=== PATIENT | female | born 1995 | race Caucasian/White ===

== ENCOUNTER 2020-10-22 05:01 | Inpatient (IN) | payer BC ==
[~2020-10-22 05:01] MED LIST: Citric Acid/Sodium Citrate Solution 30 ML Cup PO ONE; Lactated Ringers 1,000 ML IV SCH; Metoclopramide 10 MG/2 ML SDV IVPUSH ONE; Sodium Chloride 0.9% 10 ML Syringe FLUSH PRN
[2020-10-22] MEDS ORDERED: ceFAZolin 2 GM in Premix Bag 1 BAG IV ONE (07:00)
[2020-10-22] MEDS ORDERED: Bupivacaine 0.5% 30 ML SDV ONE (07:14)
[2020-10-22] MEDS ORDERED: Morphine PF 10 MG/10 ML SDV ONE (07:15)
[2020-10-22] MEDS ORDERED: ceFAZolin 1 GM Vial ONE ×2 (07:16→08:28)
[2020-10-22] MEDS ORDERED: Oxytocin 10 Units/1 ML SDV ONE (07:16)
[2020-10-22] MEDS ORDERED: Ondansetron 4 MG/2 ML SDV ONE (07:17)
[2020-10-22] MEDS ORDERED: Metoclopramide 10 MG/2 ML SDV ONE (07:18)
[2020-10-22] MEDS ORDERED: Citric Acid/Sodium Citrate Solution 30 ML Cup ONE (07:18)
--- NOTE | 2020-10-22 07:30 | PCM.PREANE ---
Preanesthetic Assessment - Procedure Proposed Procedure: C Section - Anesthesia/Transfusion/Family Hx Anesthesia History: Prior Anesthesia Without Reaction Family History of Anesthesia Reaction: No Transfusion History: No Prior Transfusion(s) Intubation History: Unknown - Review of Systems General: No Symptoms Pulmonary: No Symptoms Cardiovascular: No Symptoms Gastrointestinal: No Symptoms Neurological: No Symptoms Other: Reports: None - Physical Assessment NPO Status Date: 10/21/20 Vital Signs: Last Vital Signs Temp 36.8 C 10/22/20 05:59 Pulse 92 10/22/20 05:59 Resp 14 10/22/20 05:59 BP 115/78 10/22/20 05:59 Pulse Ox 98 10/22/20 05:59 Weight: 122.606 kg ASA Class: 2 Mental Status: Alert & Oriented x3 Dentition: Reports: Normal Dentition Thyro-Mental Finger Breadths: 3 Mouth Opening Finger Breadths: 4 ROM/Head Extension: Full Lungs: Clear to Auscultation, Normal Respiratory Effort Cardiovascular: Regular Rate, Regular Rhythm - Lab Values: Laboratory Last Values WBC 12.37 K/mm3 (3.98-10.04) H 10/22/20 05:55 RBC 4.41 M/mm3 (3.98-5.22) 10/22/20 05:55 Hgb 11.7 gm/dl (11.2-15.7) 10/22/20 05:55 Hct 35.9 % (34.1-44.9) 10/22/20 05:55 MCV 81.4 fl (79.4-94.8) D 10/22/20 05:55 MCH 26.5 pg (25.6-32.2) 10/22/20 05:55 MCHC 32.6 g/dl (32.2-35.5) 10/22/20 05:55 RDW Std Deviation 40.2 fL (36.4-46.3) 10/22/20 05:55 Plt Count 368 K/mm3 (182-369) D 10/22/20 05:55 MPV 8.7 fl (9.4-12.3) L 10/22/20 05:55 Neut % (Auto) 65.1 % (34.0-71.1) 10/22/20 05:55 Lymph % (Auto) 25.1 % (19.3-51.7) 10/22/20 05:55 [place] % (Auto) 7.3 % (4.7-12.5) 10/22/20 05:55 Eos % (Auto) 1.6 (0.7-5.8) 10/22/20 05:55 Baso % (Auto) 0.3 % (0.1-1.2) 10/22/20 05:55 Neut # (Auto) 8.05 K/mm3 (1.56-6.13) H 10/22/20 05:55 Lymph # (Auto) 3.11 K/mm3 (1.18-3.74) 10/22/20 05:55 [place] # (Auto) 0.90 K/mm3 (0.24-0.36) H 10/22/20 05:55 Eos # (Auto) 0.20 K/mm3 (0.04-0.36) 10/22/20 05:55 Baso # (Auto) 0.04 K/mm3 (0.01-0.08) 10/22/20 05:55 Blood Type O POSITIVE 10/22/20 05:55 Gel Antibody Screen Negative 10/22/20 05:55 - Allergies Allergies/Adverse Reactions: Allergies Allergy/AdvReac Type Severity Reaction Status Date / Time No Known Allergies Allergy Verified 06/19/19 15:46 - Blood Blood Available: No - Anesthesia Plan Pre-Op Medication Ordered: Antacids - Acknowledgements Anesthesia Type Planned: Spinal Pt an Appropriate Candidate for the Planned Anesthesia: Yes Alternatives and Risks of Anesthesia Discussed w Pt/Guardian: Yes Pt/Guardian Understands and Agrees with Anesthesia Plan: Yes PreAnesthesia Questionnaire Other Cardiovascular History: Preeclampsia with second Gastrointestinal History: Reports: GERD Other Gastrointestinal History: with PHYSICAL INTEGRATION PRACTITIONER History: Reports: - Past Surgical History HEENT Surgical History: Reports: Oral Surgery - SUBSTANCE USE Tobacco Use Status *Q: Never Tobacco User Second Hand Smoke Exposure: No Recreational Drug Use History: No - CURRENT (IN HOUSE) MEDS Current Meds: Current Medications Cefazolin Sodium/Dextrose 2 gm (/ Premix) 50 mls @ 100 mls/hr IV ONETIME ONE Stop: 10/22/20 07:29 Oxytocin/Lactated Ringer's (Pitocin In Lr 10 Units/1,000 Ml) 10 unit in 1,000 mls @ 100 mls/hr IV ASDIRECTED [facility]; Protocol Lactated Ringer's (Ringers, Lactated) 1,000 mls @ 125 mls/hr IV ASDIRECTED [facility] Last Admin: 10/22/20 05:45 Dose: 125 mls/hr Documented by: Sodium Chloride (Saline Flush) 10 ml FLUSH ASDIRECTED PRN PRN Reason: Keep Vein Open Discontinued Medications Bupivacaine HCl (Marcaine 0.5%) Confirm Administered Dose 30 ml .ROUTE .STK-MED ONE Stop: 10/22/20 07:15 Cefazolin Sodium (Ancef) Confirm Administered Dose 2 gm .ROUTE .STK-MED ONE Stop: 10/22/20 07:17 Citric Acid/Sodium Citrate (Bicitra Solution) 30 ml PO ONETIME ONE Stop: 10/22/20 00:25 Citric Acid/Sodium Citrate (Bicitra Solution) Confirm Administered Dose 30 ml .ROUTE .STK-MED ONE Stop: 10/22/20 07:19 Metoclopramide HCl (Reglan) 10 mg IVPUSH ONETIME ONE Stop: 10/22/20 00:25 Metoclopramide HCl (Reglan) Confirm Administered Dose 10 mg .ROUTE .STK-MED ONE Stop: 10/22/20 07:19 Morphine Sulfate (Duramorph Pf) Confirm Administered Dose 10 mg .ROUTE .STK-MED ONE Stop: 10/22/20 07:16 Ondansetron HCl (Zofran) Confirm Administered Dose 4 mg .ROUTE .STK-MED ONE Stop: 10/22/20 07:18 Oxytocin (Pitocin) Confirm Administered Dose 10 unit .ROUTE .STK-MED ONE Stop: 10/22/20 07:17
[2020-10-22] MEDS ORDERED: Lactated Ringers 1,000 ML ONE ×2 (07:40→08:01)
[2020-10-22] MEDS ORDERED: Oxytocin/Lactated Ringers 10 UNIT/1,000 ML BAG IV SCH (08:00)
[2020-10-22] MEDS ORDERED: ePHEDrine 50 MG/ML SDV ONE (08:06)
[2020-10-22] MEDS ORDERED: Ketorolac 30 MG/ML SDV ONE (08:43)
[2020-10-22] MEDS ORDERED: Ondansetron 4 MG/2 ML SDV IVPUSH PRN (09:03)
[2020-10-22] MEDS ORDERED: diphenhydrAMINE 50 MG/ML SDV IVPUSH PRN (09:03)
--- NOTE | 2020-10-22 09:07 | PCM.OPNOTE ---
- General Post-Op/Procedure Note Date of Surgery/Procedure: 10/22/20 Operative Procedure(s): repeat section Findings: Large (7 cm) uterine window. Viable female, weight 7#10oz, 7/9 APGARS at 815. Pre Op Diagnosis: prior , desires repeat Post-Op Diagnosis: Same Anesthesia Technique: Spinal Primary Surgeon: Madiha Greer Anesthesia Provider: Adrienne Jimenez Classifier: Kesha Ferguson Reason Classifier Was Necessary: patient safety, prior , retraction Fluid Replacement, Intraop: 2,000 Output, Urine Amount: 50 EBL in mLs: 800 Condition: Good Free Text/Narrative:: The patient was taken to the operating room where spinal anesthesia was dosed to surgical levels without difficulty. The patient was prepped and draped in the usual sterile fashion in the dorsal supine position with a leftward tilt. A Pfannenstiel skin incision was made with the scalpel and carried through to the underlying layer of fascia. The fascia was incised in the midline and extended laterally using Lyon scissors. Denis clamps were used to elevate the superior aspect of the fascial incision, which was elevated, and the underlying rectus muscles were dissected off bluntly and using Lyon scissors. Attention was then turned to the inferior aspect of the fascial incision, which in similar fashion was grasped with Denis clamps, elevated, and the underlying rectus muscles were dissected off bluntly and using the lyon. The rectus muscles were dissected in the midline. The peritoneum was entered bluntly; this incision was extended superiorly and inferiorly with good visualization of the bladder. The bladder blade was inserted. What appeared to be a uterine window or significant vesicouterine edema was visualized. Incision made about 2 cm above this in a transverse fashio n. This The lower uterine segment was incised in a transverse fashion using the scalpel and with digital traction. Clear fluid was noted. The infant was subsequently delivered by flexing the head to the incision. Body and shoulders followed without difficulty. The cord was clamped and cut. The infant was subsequently handed to the awaiting retirement manager whose presence had been requested.. The placenta was delivered spontaneously intact with a three-vessel cord noted. The uterus was exteriorized and cleared of all clots and debris. The uterine incision was repaired in 2 layers using 0 monocryl. Hemostasis was visualized of the hysterotomy. Attention turned to bladder and lower segment and defect noted covered only with thin vesicouterine peritoneum. This was taken down. Lower aspect of defect grasped with rings and this was closed in running locking fashion as a second hysterotomy. The uterus was returned to the abdomen. The uterine incision was reexamined and it was noted to be hemostatic. The pelvis was copiously irrigated. The fascia was closed with 1 PDS suture, and the skin was closed with 3-0 monocryl. Sponge, lap, and instrument counts were correct x2. The patient was stable at the completion of the procedure and was subsequently transferred to the recovery room in stable condition.
--- NOTE | 2020-10-22 09:07 | PCM.POSTAN ---
POST ANESTHESIA ASSESSMENT - MENTAL STATUS Mental Status: Alert - VITAL SIGNS Vital Signs: Last Vital Signs 0851 115/79 14 92 98.2 Temp 36.8 C 10/22/20 05:59 Pulse 92 10/22/20 05:59 Resp 14 10/22/20 05:59 BP 115/78 10/22/20 05:59 Pulse Ox 98 10/22/20 05:59 - RESPIRATORY Respiratory Status: Respiratory Rate WNL, Airway Patent, O2 Saturation Stable - CARDIOVASCULAR CV Status: Pulse Rate WNL, Blood Pressure Stable - GASTROINTESTINAL GI Status: No Symptoms - PAIN Pain Score: 0 - POST OP HYDRATION Hydration Status: Adequate & Stable
[2020-10-22] MEDS ORDERED: Dextrose 5%-Lactated Ringers 1,000 ML IV SCH (13:30)
[2020-10-22] MEDS: Ketorolac 30 MG/ML SDV IVPUSH SCH ×2 (15:21→21:01)
[2020-10-23] MEDS: Ketorolac 30 MG/ML SDV IVPUSH SCH (03:19)
[2020-10-23] MEDS ORDERED: ePHEDrine 50 MG/ML SDV IVPUSH PRN (06:33)
[2020-10-23] MEDS ORDERED: Acetaminophen/oxyCODONE 325-5 MG Tab PO PRN ×2 (06:33)
[2020-10-23] MEDS ORDERED: Dextrose 5%-Lactated Ringers 1,000 ML IV SCH (06:33)
[2020-10-23] MEDS ORDERED: Naloxone 0.4 MG/ML SDV IVPUSH PRN (06:33)
[2020-10-23] MEDS ORDERED: diphenhydrAMINE 50 MG/ML SDV IVPUSH PRN (06:33)
[2020-10-23] MEDS ORDERED: Docusate Sodium 100 MG Cap PO PRN (06:33)
--- NOTE | 2020-10-23 07:32 | PCM.PNPP ---
- General Info Date of Service: 10/23/20 Functional Status: Reports: Pain Controlled, Tolerating Diet, Ambulating - Review of Systems General: Reports: No Symptoms Pulmonary: Reports: No Symptoms Cardiovascular: Reports: No Symptoms Gastrointestinal: Reports: Abdominal Pain (minimal ) Genitourinary: Reports: No Symptoms Musculoskeletal: Reports: No Symptoms Neurological: Reports: No Symptoms - General Info Date of Service: 10/23/20 - Patient Data Vital Signs - Most Recent: Last Vital Signs Temp 36.9 C 10/23/20 03:20 Pulse 83 10/23/20 03:20 Resp 15 10/23/20 06:00 BP 123/66 10/23/20 03:20 Pulse Ox 99 10/23/20 06:00 Weight - Most Recent: 122.606 kg I&O - Last 24 Hours: Intake & Output 10/22/20 10/23/20 10/23/20 22:59 06:59 14:59 Intake Total 1000 Output Total 400 1200 Balance -400 -200 Lab Results - Last 24 Hours: Laboratory Results - last 24 hr 10/22/20 10/23/20 Range/Units 05:55 06:50 WBC 12.34 H (3.98-10.04) K/mm3 RBC 4.37 (3.98-5.22) M/mm3 Hgb 11.4 (11.2-15.7) gm/dl Hct 35.8 (34.1-44.9) % MCV 81.9 (79.4-94.8) fl MCH 26.1 (25.6-32.2) pg MCHC 31.8 L (32.2-35.5) g/dl RDW Std Deviation 41.5 (36.4-46.3) fL Plt Count 342 (182-369) K/mm3 MPV 8.3 L (9.4-12.3) fl Neut % (Auto) 76.2 H (34.0-71.1) % Lymph % (Auto) 15.1 L (19.3-51.7) % [place] % (Auto) 6.4 (4.7-12.5) % Eos % (Auto) 1.7 (0.7-5.8) Baso % (Auto) 0.3 (0.1-1.2) % Neut # (Auto) 9.40 H (1.56-6.13) K/mm3 Lymph # (Auto) 1.86 (1.18-3.74) K/mm3 [place] # (Auto) 0.79 H (0.24-0.36) K/mm3 Eos # (Auto) 0.21 (0.04-0.36) K/mm3 Baso # (Auto) 0.04 (0.01-0.08) K/mm3 RPR Non-reactive (NONREACTIVE) Med Orders - Current: Current Medications Diphenhydramine HCl (Benadryl) 25 mg IVPUSH Q6H PRN PRN Reason: Itching or Nausea Docusate Sodium (Colace) 100 mg PO Q12H PRN PRN Reason: Constipation Ephedrine Sulfate (Ephedrine Sulfate) 5 mg IVPUSH SEECOMMENT PRN PRN Reason: Other Dextrose/Lactated Ringer's (Dextrose 5%-Lactated Ringers) 1,000 mls @ 125 mls/hr IV ASDIRECTED [facility] Stop: 10/23/20 14:32 Ibuprofen (Motrin) 600 mg PO Q6H PRN PRN Reason: mild pain or fever Naloxone HCl (Narcan) 0.1 mg IVPUSH SEECOMMENT PRN PRN Reason: Respiratory Depression Oxycodone/Acetaminophen (Percocet 325-5 Mg) 2 tab PO Q4H PRN PRN Reason: Pain (severe 7-10) Oxycodone/Acetaminophen (Percocet 325-5 Mg) 1 tab PO Q4H PRN PRN Reason: Pain (moderate 4-6) Simethicone (Simethicone) 80 mg PO QIDPCANDBED [facility] Discontinued Medications Bupivacaine HCl (Marcaine 0.5%) Confirm Administered Dose 30 ml .ROUTE .STK-MED ONE Stop: 10/22/20 07:15 Last Admin: 10/22/20 08:08 Dose: 20 ml Documented by: Cefazolin Sodium (Ancef) Confirm Administered Dose 2 gm .ROUTE .STK-MED ONE Stop: 10/22/20 07:17 Cefazolin Sodium (Ancef) Confirm Administered Dose 1 gm .ROUTE .STK-MED ONE Stop: 10/22/20 08:29 Citric Acid/Sodium Citrate (Bicitra Solution) 30 ml PO ONETIME ONE Stop: 10/22/20 00:25 Last Admin: 10/22/20 07:20 Dose: 30 ml Documented by: Citric Acid/Sodium Citrate (Bicitra Solution) Confirm Administered Dose 30 ml .ROUTE .STK-MED ONE Stop: 10/22/20 07:19 Last Admin: 10/22/20 14:34 Dose: Not Given Documented by: Diphenhydramine HCl (Benadryl) 25 mg IVPUSH Q6H PRN PRN Reason: pruritis Ephedrine Sulfate (Ephedrine Sulfate) Confirm Administered Dose 50 mg .ROUTE .ST-MED ONE Stop: 10/22/20 08:07 Cefazolin Sodium/Dextrose 2 gm (/ Premix) 50 mls @ 100 mls/hr IV ONETIME ONE Stop: 10/22/20 07:29 Last Admin: 10/22/20 14:34 Dose: Not Given Documented by: Oxytocin/Lactated Ringer's (Pitocin In Lr 10 Units/1,000 Ml) 10 unit in 1,000 mls @ 100 mls/hr IV ASDIRECTED [facility]; Protocol Lactated Ringer's (Ringers, Lactated) 1,000 mls @ 125 mls/hr IV ASDIRECTED [facility] Last Admin: 10/22/20 05:45 Dose: 125 mls/hr Documented by: Lactated Ringer's (Ringers, Lactated) Confirm Administered Dose 1,000 mls @ as directed .ROUTE .ST-MED ONE Stop: 10/22/20 07:41 Last Admin: 10/22/20 14:34 Dose: Not Given Documented by: Lactated Ringer's (Ringers, Lactated) Confirm Administered Dose 1,000 mls @ as directed .ROUTE .[facility]-MED ONE Stop: 10/22/20 08:02 Dextrose/Lactated Ringer's (Dextrose 5%-Lactated Ringers) 1,000 mls @ 125 mls/hr IV ASDIRECTED [facility] Last Admin: 10/22/20 14:32 Dose: 125 mls/hr Documented by: Ketorolac Tromethamine (Toradol) Confirm Administered Dose 30 mg .ROUTE .STK-MED ONE Stop: 10/22/20 08:44 Ketorolac Tromethamine (Toradol) 30 mg IVPUSH Q6H [facility] Stop: 10/23/20 03:01 Last Admin: 10/23/20 03:19 Dose: 30 mg Documented by: Metoclopramide HCl (Reglan) 10 mg IVPUSH ONETIME ONE Stop: 10/22/20 00:25 Last Admin: 10/22/20 07:20 Dose: 10 mg Documented by: Metoclopramide HCl (Reglan) Confirm Administered Dose 10 mg .ROUTE .STK-MED ONE Stop: 10/22/20 07:19 Last Admin: 10/22/20 14:35 Dose: Not Given Documented by: Miscellaneous Medication (Phenylephrine 1 Mg/10 Ml-Ns) Confirm Administered Dose 1 mg .ROUTE .STK-MED ONE Stop: 10/22/20 08:04 Morphine Sulfate (Duramorph Pf) Confirm Administered Dose 10 mg .ROUTE .STK-MED ONE Stop: 10/22/20 07:16 Ondansetron HCl (Zofran) Confirm Administered Dose 4 mg .ROUTE .STK-MED ONE Stop: 10/22/20 07:18 Ondansetron HCl (Zofran) 4 mg IVPUSH ONETIME PRN PRN Reason: Nausea/Vomiting Oxytocin (Pitocin) Confirm Administered Dose 10 unit .ROUTE .STK-MED ONE Stop: 10/22/20 07:17 Sodium Chloride (Saline Flush) 10 ml FLUSH ASDIRECTED PRN PRN Reason: Keep Vein Open - Infant Interaction Disposition, : [place] in Room with Family Interaction: Holding Feeding: Other (see below) (pumping exclusively) Support Person: - Recovery Exam Fundal Tone: Firm Fundal Level: 2 Fingerbreadths Below Umbilicus Fundal Placement: Midline Lochia Amount: Scant Lochia Color: Rubra/Red Perineum Description: Intact, Minimal Bruising/Swelling - Exam General: Alert, Oriented, Cooperative Lungs: Clear to Auscultation, Normal Respiratory Effort Cardiovascular: Regular Rate, Regular Rhythm GI/Abdominal Exam: Soft, Tender (appropriate ) Extremities: Normal Inspection Skin: Warm, Dry, Intact Wound/Incisions: Healing Well - Problem List & Annotations (1) S/P repeat low transverse SNOMED Code(s): 461471646, [id number], [id number], [id number], [id number] Code(s): Z98.891 - HISTORY OF UTERINE SCAR FROM PREVIOUS SURGERY Status: Acute Current Visit: Yes - Problem List Review Problem List Initiated/Reviewed/Updated: Yes - Assessment Assessment:: POD#1 - Plan Plan:: * Routine cares * Pumping exclusively * Discharge home in 1-2 days
--- NOTE | 2020-10-23 07:42 | PCM48HPAN ---
Post Anesthesia Note - EVALUATION WITHIN 48HRS OF ANESTHETIC Vital Signs in Normal Range: Yes Patient Participated in Evaluation: Yes Respiratory Function Stable: Yes Airway Patent: Yes Cardiovascular Function Stable: Yes Hydration Status Stable: Yes Pain Control Satisfactory: Yes Nausea and Vomiting Control Satisfactory: Yes Mental Status Recovered: Yes Vital Signs: Last Vital Signs Temp 36.9 C 10/23/20 03:20 Pulse 83 10/23/20 03:20 Resp 15 10/23/20 06:00 BP 123/66 10/23/20 03:20 Pulse Ox 99 10/23/20 06:00
[2020-10-23] MEDS: Simethicone 80 MG Tab.Chew PO SCH ×4 (12:05→21:55)
[2020-10-23] MEDS: Ibuprofen 600 MG Tab PO PRN ×2 (12:05→20:26)
[2020-10-24] MEDS: Ibuprofen 600 MG Tab PO PRN (02:44)
--- NOTE | 2020-10-24 09:54 | PCM.SN.2 ---
- Free Text/Narrative Note: Post Operative Progress Note POD #2 Subjective: Doing well overall. Ambulating without difficulty. Lochia minimal and mostly present with pumping breastmilk. Voiding without difficulty. Passing flatus and has had a bowel movement without difficulty. Tolerating regular diet without nausea or vomiting. Pain controlled with oral medications. Pumping breastmilk with minimal difficulty. Objective: Vitals: Vital Signs - 24 hr 10/23/20 10/23/20 10/24/20 15:30 20:28 02:46 Temperature 35.7 C L 36.8 C 36.8 C Pulse, 93 98 93 Peripheral Respiratory 16 14 Rate Blood Pressure 115/72 130/62 138/83 O2 Sat by Pulse 98 99 99 Oximetry 10/24/20 08:05 Temperature 36.8 C Pulse, 98 Peripheral Respiratory 15 Rate Blood Pressure 131/80 O2 Sat by Pulse 96 Oximetry Physical Exam General: Alert and oriented, no acute distress Lungs: Clear to auscultation bilaterally Heart: Regular rate and rhythm Abdomen: Soft, minimal appropriate tenderness, non-distended, fundus midline, nontender and 1 fingerbreadth below the umbilicus Incision: Clean, dry and intact, no erythema, bleeding or drainage with Steri- Strips in place Extremities: No edema ASSESSMENT: 25-year-old female -1-0-3 s/p repeat section POD #2 for history of section, complicated by history of preeclampsia in her second and history of delivery at 35 weeks gestational age due to preeclampsia PLAN: Doing well Pumping breastmilk with minimal difficulty. Assist as needed Incision healing well. Continue to keep clean and dry. Lochia minimal. Continue to monitor for appropriate lochia. Continue routine post-operative care Discharge home today Gabino Barfield MD 9:51 AM 10/24/2020
--- NOTE | 2020-10-24 10:04 | PCM.DCSUM1 ---
Discharge Summary - Hospital Course Free Text/Narrative:: - General Post-Op/Procedure Note Date of Surgery/Procedure: 10/22/20 Operative Procedure(s): repeat section Findings: Large (7 cm) uterine window. Viable female, weight 7#10oz, 7/9 APGARS at 815. Pre Op Diagnosis: prior , desires repeat Post-Op Diagnosis: Same Anesthesia Technique: Spinal Primary Surgeon: Madiha Greer Anesthesia Provider: Adrienne Jimenez Escalator Installer: Kesha Ferguson Reason Escalator Installer Was Necessary: patient safety, prior , retraction Fluid Replacement, Intraop: 2,000 Output, Urine Amount: 50 EBL in mLs: 800 Condition: Good Free Text/Narrative:: The patient was taken to the operating room where spinal anesthesia was dosed to surgical levels without difficulty. The patient was prepped and draped in the usual sterile fashion in the dorsal supine position with a leftward tilt. A Pfannenstiel skin incision was made with the scalpel and carried through to the underlying layer of fascia. The fascia was incised in the midline and extended laterally using Lyon scissors. Denis clamps were used to elevate the superior aspect of the fascial incision, which was elevated, and the underlying rectus muscles were dissected off bluntly and using Lyon scissors. Attention was then turned to the inferior aspect of the fascial incision, which in similar fashion was grasped with Denis clamps, elevated, and the underlying rectus muscles were dissected off bluntly and using the lyon. The rectus muscles were dissected in the midline. The peritoneum was entered bluntly; this incision was extended superiorly and inferiorly with good visualization of the bladder. The bladder blade was inserted. What appeared to be a uterine window or significant vesicouterine edema was visualized. Incision made about 2 cm above this in a transverse fashion. This The lower uterine segment was incised in a transverse fashion usi ng the scalpel and with digital traction. Clear fluid was noted. The infant was subsequently delivered by flexing the head to the incision. Body and shoulders followed without difficulty. The cord was clamped and cut. The infant was subsequently handed to the awaiting assistance specialist whose presence had been requested.. The placenta was delivered spontaneously intact with a three-vessel cord noted. The uterus was exteriorized and cleared of all clots and debris. The uterine incision was repaired in 2 layers using 0 monocryl. Hemostasis was visualized of the hysterotomy. Attention turned to bladder and lower segment and defect noted covered only with thin vesicouterine peritoneum. This was taken down. Lower aspect of defect grasped with rings and this was closed in running locking fashion as a second hysterotomy. The uterus was returned to the abdomen. The uterine incision was reexamined and it was noted to be hemostatic. The pelvis was copiously irrigated. The fascia was closed with 1 PDS suture, and the skin was closed with 3-0 monocryl. Sponge, lap, and instrument counts were correct x2. The patient was stable at the completion of the procedure and was subsequently transferred to the recovery room in stable condition. Diagnosis: Stroke: No - Discharge Data Discharge Date: 10/24/20 Discharge Disposition: Home, Self-Care 01 Condition: Good - Referral to Home Health Primary Care Physician: Madiha Greer MD - Patient Summary/Data Operative Procedure(s) Performed: repeat section Complications: None Consults: None Hospital Course: Dolores Bonilla was admitted for scheduled repeat section. She was taken back to the OR and given spinal injection for anesthesia. She was prepped and draped in the normal fashion. On 10/22/2020 she had a normal repeat low transverse delivery of a live female infant at 08:15. Apgars of 7 and 9. Weight of 7 pounds 10 ounces. She was closed in a normal fashion. There was notation of a lower uterine defect after repair of the initial hysterotomy that was repaired using 2-0 Monocryl. There were no other complications. Please see the operative report for full details. Her post operative course was uneventful. Her pain was well controlled and she had minimal lochia. She was ambulating, tolerating a regular diet and voiding normally. She was passing flatus and has had a bowel movement. She was pumping breastmilk for feeding and this was going well for her. She was afebrile and her hematocrit was 35.8 on POD #1. She desired to be discharged home on the morning of POD #2. Her blood type is O+. - Patient Instructions Diet: Regular Diet as Tolerated Activity: Apply Ice, As Tolerated, No Lifting Over 20 Pounds Activity, Other: Nothing in the vagina for 6 weeks Driving: Do Not Drive (while taking narcotic medicaitons or having significant pain) Showering/Bathing: May Shower Wound/Incision Care: Keep Operative Site/Wound Site Clean and Dry Notify Provider of: Fever, Increased Pain, Swelling and Redness, Drainage, Nausea and/or Vomiting Other/Special Instructions: Please contact your physician's office if you note any bleeding or pus coming from the abdominal incision. Please contact your physician's office if you have heavy vaginal bleeding enough to soak a pad in less than an hour for several hours. Monitor for any signs of an infection in the breasts with severe pain or redness of the breast. - Discharge Plan *PRESCRIPTION DRUG MONITORING PROGRAM REVIEWED*: No *COPY OF PRESCRIPTION DRUG MONITORING REPORT IN PATIENT VERNELL: No Home Medications: Home Meds Acetaminophen/oxyCODONE [Percocet 325-5 MG] 1 - 2 tab PO Q4H PRN tablet 10/24/20 [Rx] Docusate Sodium [Colace] 100 mg PO Q12H PRN cap 10/24/20 [Rx] Ibuprofen [Motrin] 600 mg PO Q6H PRN tablet 10/24/20 [Rx] Simethicone 80 mg PO QIDPCANDBED tab.chew 10/24/20 [Rx] Patient Handouts: Care After Delivery Referrals: Madiha Greer MD [Primary Care Provider] - (Follow up in 2-3 weeks for routine postoperative visit or earlier as needed.) - Discharge Summary/Plan Comment DC Time >30 min.: No - Patient Data Vitals - Most Recent: Last Vital Signs Temp 36.8 C 10/24/20 08:05 Pulse 98 10/24/20 08:05 Resp 15 10/24/20 08:05 BP 131/80 10/24/20 08:05 Pulse Ox 96 10/24/20 08:05 Weight - Most Recent: 122.606 kg Med Orders - Current: Current Medications Diphenhydramine HCl (Benadryl) 25 mg IVPUSH Q6H PRN PRN Reason: Itching or Nausea Docusate Sodium (Colace) 100 mg PO Q12H PRN PRN Reason: Constipation Ephedrine Sulfate (Ephedrine Sulfate) 5 mg IVPUSH SEECOMMENT PRN PRN Reason: Other Ibuprofen (Motrin) 600 mg PO Q6H PRN PRN Reason: mild pain or fever Last Admin: 10/24/20 02:44 Dose: 600 mg Documented by: Naloxone HCl (Narcan) 0.1 mg IVPUSH SEECOMMENT PRN PRN Reason: Respiratory Depression Oxycodone/Acetaminophen (Percocet 325-5 Mg) 2 tab PO Q4H PRN PRN Reason: Pain (severe 7-10) Oxycodone/Acetaminophen (Percocet 325-5 Mg) 1 tab PO Q4H PRN PRN Reason: Pain (moderate 4-6) Simethicone (Simethicone) 80 mg PO QIDPCANDBED ROHAN Last Admin: 10/23/20 21:55 Dose: 80 mg Documented by: Discontinued Medications Bupivacaine HCl (Marcaine 0.5%) Confirm Administered Dose 30 ml .ROUTE .STK-MED ONE Stop: 10/22/20 07:15 Last Admin: 10/22/20 08:08 Dose: 20 ml Documented by: Cefazolin Sodium (Ancef) Confirm Administered Dose 2 gm .ROUTE .STK-MED ONE Stop: 10/22/20 07:17 Cefazolin Sodium (Ancef) Confirm Administered Dose 1 gm .ROUTE .STK-MED ONE Stop: 10/22/20 08:29 Citric Acid/Sodium Citrate (Bicitra Solution) 30 ml PO ONETIME ONE Stop: 10/22/20 00:25 Last Admin: 10/22/20 07:20 Dose: 30 ml Documented by: Citric Acid/Sodium Citrate (Bicitra Solution) Confirm Administered Dose 30 ml .ROUTE .STK-MED ONE Stop: 10/22/20 07:19 Last Admin: 10/22/20 14:34 Dose: Not Given Documented by: Diphenhydramine HCl (Benadryl) 25 mg IVPUSH Q6H PRN PRN Reason: pruritis Ephedrine Sulfate (Ephedrine Sulfate) Confirm Administered Dose 50 mg .ROUTE .STK-MED ONE Stop: 10/22/20 08:07 Cefazolin Sodium/Dextrose 2 gm (/ Premix) 50 mls @ 100 mls/hr IV ONETIME ONE Stop: 10/22/20 07:29 Last Admin: 10/22/20 14:34 Dose: Not Given Documented by: Oxytocin/Lactated Ringer's (Pitocin In Lr 10 Units/1,000 Ml) 10 unit in 1,000 mls @ 100 mls/hr IV ASDIRECTED ROHAN; Protocol Lactated Ringer's (Ringers, Lactated) 1,000 mls @ 125 mls/hr IV ASDIRECTED [facility] Last Admin: 10/22/20 05:45 Dose: 125 mls/hr Documented by: Lactated Ringer's (Ringers, Lactated) Confirm Administered Dose 1,000 mls @ as directed .ROUTE .STK-MED ONE Stop: 10/22/20 07:41 Last Admin: 10/22/20 14:34 Dose: Not Given Documented by: Lactated Ringer's (Ringers, Lactated) Confirm Administered Dose 1,000 mls @ as directed .ROUTE .STK-MED ONE Stop: 10/22/20 08:02 Dextrose/Lactated Ringer's (Dextrose 5%-Lactated Ringers) 1,000 mls @ 125 mls/hr IV ASDIRECTED [facility] Last Admin: 10/22/20 14:32 Dose: 125 mls/hr Documented by: Dextrose/Lactated Ringer's (Dextrose 5%-Lactated Ringers) 1,000 mls @ 125 mls/hr IV ASDIRECTED [facility] Stop: 10/23/20 14:32 Ketorolac Tromethamine (Toradol) Confirm Administered Dose 30 mg .ROUTE .STK-MED ONE Stop: 10/22/20 08:44 Ketorolac Tromethamine (Toradol) 30 mg IVPUSH Q6H [facility] Stop: 10/23/20 03:01 Last Admin: 10/23/20 03:19 Dose: 30 mg Documented by: Metoclopramide HCl (Reglan) 10 mg IVPUSH ONETIME ONE Stop: 10/22/20 00:25 Last Admin: 10/22/20 07:20 Dose: 10 mg Documented by: Metoclopramide HCl (Reglan) Confirm Administered Dose 10 mg .ROUTE .STK-MED ONE Stop: 10/22/20 07:19 Last Admin: 10/22/20 14:35 Dose: Not Given Documented by: Miscellaneous Medication (Phenylephrine 1 Mg/10 Ml-Ns) Confirm Administered Dose 1 mg .ROUTE .STK-MED ONE Stop: 10/22/20 08:04 Morphine Sulfate (Duramorph Pf) Confirm Administered Dose 10 mg .ROUTE .STK-MED ONE Stop: 10/22/20 07:16 Ondansetron HCl (Zofran) Confirm Administered Dose 4 mg .ROUTE .STK-MED ONE Stop: 10/22/20 07:18 Ondansetron HCl (Zofran) 4 mg IVPUSH ONETIME PRN PRN Reason: Nausea/Vomiting Oxytocin (Pitocin) Confirm Administered Dose 10 unit .ROUTE .STK-MED ONE Stop: 10/22/20 07:17 Sodium Chloride (Saline Flush) 10 ml FLUSH ASDIRECTED PRN PRN Reason: Keep Vein Open
== END 2020-10-24 10:35 | disposition home or self-care (01) | DRG 540 ==
LOC: JD.OB 05:01
PROVIDERS: ADMIT Obstetrics & Gynecology; ATTEND Obstetrics & Gynecology
PROC: 10D00Z1 Extraction of Products of Conception, Low, Open Approach (ICD-10-PCS; principal; 2020-10-22)
DX: O34.211 Maternal care for low transverse scar from previous cesarean delivery (principal); Z37.0 Single live birth; Z3A.37 37 weeks gestation of pregnancy; O99.62 Diseases of the digestive system complicating childbirth; K21.9 Gastro-esophageal reflux disease without esophagitis; Z86.16 Personal history of COVID-19
CPT/HCPCS: 01961; 36415; 59025; 85025; 86592; 86850; 86900; 86901; 94762; A9270-GY; J0690; J1885; J2270; J2370; J2405; J2590; J2765; J3490; J7120; J7121

== ENCOUNTER 2021-05-02 16:06 | Emergency (ER) | payer BC ==
--- NOTE | 2021-05-02 16:34 | EDM.PDOC ---
ED HPI GENERAL MEDICAL PROBLEM - General Chief Complaint: Lower Extremity Injury/Pain Stated Complaint: LT KNEE INJURY Time Seen by Provider: 05/02/21 16:21 Source of Information: Reports: Patient, RN Notes Reviewed History Limitations: Reports: No Limitations - History of Present Illness INITIAL COMMENTS - FREE TEXT/NARRATIVE: Patient is a 25-year-old female who presents to the ER for the evaluation of the left knee injury. She was playing softball at a tournament, and was running to the home plate, when she felt a pop in her left knee, and she fell after this, and ended up straightening her leg out, and then felt another pop. She believes that she dislocated her knee, she does this quite commonly with her right knee but has not ever had this issue with her left knee. She notes that she is not able to bear any weight on the left knee after this injury. She is not taking anything for pain management. She denies as she states she is on her menses currently. Left Knee Pain Score (Numeric/FACES): 5 - Related Data Allergies Allergy/AdvReac Type Severity Reaction Status Date / Time No Known Allergies Allergy Verified 05/02/21 16:22 Home Meds: Home Meds . [No Known Home Meds] 05/02/21 [History] Past Medical History Other Cardiovascular History: Preeclampsia with second Gastrointestinal History: Reports: GERD Other Gastrointestinal History: with [facility] & PRESIDENT History: Reports: - Past Surgical History HEENT Surgical History: Reports: Oral Surgery Social & Family History - Family History Family Medical History: No Pertinent Family History - Caffeine Use Caffeine Use: Reports: None Review of Systems - Review of Systems Review Of Systems: Comprehensive ROS is negative, except as noted in HPI. ED EXAM, GENERAL - Physical Exam Exam: See Below Exam Limited By: No Limitations General Appearance: Alert, WD/WN, No Apparent Distress Peripheral Pulses: 2+: Dorsalis Pedis (L), Dorsalis Pedis (R) Extremities: Normal Inspection, Normal Capillary Refill, Limited Range of Motion (of left knee d/t pain, states she has some shooting pain into her hip) Neurological: Alert, Oriented, Normal Cognition, No Motor/Sensory Deficits Psychiatric: Normal Affect, Normal Mood Skin Exam: Warm, Dry, Intact, Normal Color, No Rash Course - Vital Signs Last Recorded V/S: Last Vital Signs Temp 98.5 F 05/02/21 16:20 Pulse 100 05/02/21 16:20 Resp 16 05/02/21 16:20 BP 125/85 05/02/21 16:20 Pulse Ox 97 05/02/21 16:20 - Orders/Labs/Meds Orders: Active Orders 24 hr Category Date Time Status Knee Min 4V Lt [CR] Stat Exams 05/02/21 16:27 Ordered - Re-Assessments/Exams Free Text/Narrative Re-Assessment/Exam: 05/02/21 16:34 Patient presents to the ER for the evaluation of her left knee injury, we will go ahead and get x-rays of the area for evaluation, and then figure out disposition after the x-rays have been taken. 05/02/21 17:21 Patient's x-rays have been obtained, there are no obvious fracture or other bony abnormality, we will go ahead and place her in a knee immobilizer brace, and give her crutches keep her nonweightbearing and have her follow-up with orthopedics for ongoing management. Departure - Departure Time of Disposition: 17:22 Disposition: Home, Self-Care 01 Condition: Good Clinical Impression: Left knee pain Qualifiers: Chronicity: acute Qualified Code(s): M25.562 - Pain in left knee - Discharge Information *PRESCRIPTION DRUG MONITORING PROGRAM REVIEWED*: No *COPY OF PRESCRIPTION DRUG MONITORING REPORT IN PATIENT VERNELL: No Instructions: Acute Knee Pain, Adult, [id number] Referrals: Aisha Mehta NP [Primary Care Provider] - Forms: ED Department Discharge Additional Instructions: You have been evaluated in the ED for your left knee injury. Your x-ray demonstrated no acute fracture or other bony abnormality of your left knee. There is likely soft tissue injury, that might need further evaluation like an MRI. Please use ice as tolerated to the affected area. You may elevate the affected area to provide further relief from swelling. You have been provided with a brace, to prevent further injury and/or stabilize the injury you received today. You were also given crutches to keep you nonweightbearing until you can be evaluated by orthopedics. You may take Tylenol 500 mg or ibuprofen 600mg q6 hrs for pain relief. Please do so until you have a tolerable level of pain with activity. Do not exceed 4000mg Tylenol, Do not exceed 3200mg ibuprofen in a 24 hour time period. Please call Ortho for follow-up and further evaluation Dr. Miller is our orthopedic surgeon, his office number is [phone]. Please call and set up an appointment as soon as possible for further management. Please return to ED if your symptoms should change or worsen. Sepsis Event Note (ED) - Evaluation Sepsis Screening Result: No Definite Risk - Focused Exam Vital Signs: Vital Signs Temp Pulse Resp BP Pulse Ox 05/02/21 16:20 98.5 F 100 16 125/85 97 - My Orders Last 24 Hours: My Active Orders 05/02/21 16:27 Knee Min 4V Lt [CR] Stat - Assessment/Plan Last 24 Hours: My Active Orders 05/02/21 16:27 Knee Min 4V Lt [CR] Stat
--- NOTE | 2021-05-02 20:53 | CR ---
Left knee: 4 views of the left knee were obtained. Comparison: No prior knee studies available. Medial joint is slightly narrowed as compared to the lateral joint. No acute fracture, dislocation or other bony abnormality is appreciated. Impression: 1. Slight medial joint space narrowing. 2. Nothing acute is otherwise seen on left knee exam. Diagnostic code #2
== END 2021-05-02 17:40 | disposition home or self-care (01) ==
LOC: JD.ED 16:06
DX: M25.562 Pain in left knee (principal)
CPT/HCPCS: 73564-26-LT; 73564-LT; 99282; 99283-25